=== PATIENT | male | born 1940 | race Caucasian/White ===

== ENCOUNTER 2018-09-06 14:59 | Inpatient (IN) ==
[2018-09-06] MEDS ORDERED: MUPIROCIN 2% OINT 22 GM TUBE TOP ONE (15:45)
[2018-09-06 16:30] LABS: Basophils # 0.1 10*3/uL (0.0-0.2); Basophils % 0.3 % (0.0-0.8); Eosinophils # 0.2 10*3/uL (0.0-0.87); Eosinophils % 0.9 % (0.00-10.9); Hematocrit 40.3 VOL% (42.0-52.0); Hemoglobin 12.8 GM/DL (14.0-18.0); Immature Granulocytes % 0.4 %; Immature Granulocytes Absolute 0.08 #; Lymphocytes # 13.4 10*3/uL (1.4-4.0); Lymphocytes % 63.8 % (21.2-54.2); Mean Corpuscular HGB Conc 31.8 GM/DL (32-36); Mean Corpuscular Volume 97.6 FL (87-102); Mean Platelet Volume 8.9 FL (9.6-12.0); Monocytes % 8.6 % (1.7-12.7); Platelet Count 161 T/CUMM (130-400); Red Blood Count 4.13 MC/CUMM (3.8-5.5); Red Cell Distribution Width 13.1 % (9.3-17.3)
[2018-09-06 16:52] LABS: Eosinophils 1 % (0-10); Lymphocytes 66 % (20-55); Platelet Estimate Normal; Segmented Neutrophils 29 % (50-85); Total Cells Counted 100
[2018-09-06 17:00] LABS: Albumin 3.8 G/DL (3.4-5.0); Bilirubin,Total 0.4 MG/DL (0.2-1.0); Calcium 8.4 MG/DL (8.5-10.1); Osmolality,Calculated 285.1 MOS/KG (273-304); Total Protein 6.9 G/DL (6.4-8.3)
[2018-09-06] MEDS ORDERED: ONDANSETRON 4 MG/2 ML VIAL IV PRN (18:24)
[2018-09-06] MEDS: SODIUM CHLORIDE 0.9% IV SCH (22:15)
[2018-09-06] MEDS: ACYCLOVIR IV SCH (22:15)
[2018-09-06] MEDS: methylPREDNISolone SOD SUC 40 MG/1 ML VIAL IV SCH (22:17)
[2018-09-06] MEDS: CARVEDILOL 6.25 MG TABLET PO SCH (22:18)
[2018-09-06] MEDS: MORPHINE 4 MG/1 ML VIAL IV PRN (22:19)
[2018-09-06] MEDS: CEFTAROLINE 600 MG in SODIUM CHLORIDE 0.9% 100 ML IV SCH (23:40)
[2018-09-07] MEDS: ACYCLOVIR IV SCH (04:31)
[2018-09-07] MEDS: SODIUM CHLORIDE 0.9% IV SCH (04:31)
[2018-09-07 07:26] LABS: Basophils % 0.1 % (0.0-0.8); Eosinophils % 0.1 % (0.00-10.9); Hematocrit 36.7 VOL% (42.0-52.0); Hemoglobin 11.7 GM/DL (14.0-18.0); Immature Granulocytes % 0.4 %; Immature Granulocytes Absolute 0.07 #; Lymphocytes # 10.9 10*3/uL (1.4-4.0); Mean Corpuscular HGB Conc 31.9 GM/DL (32-36); Mean Corpuscular Volume 96.3 FL (87-102); Mean Platelet Volume 9.7 FL (9.6-12.0); Monocytes % 1.8 % (1.7-12.7); Neutrophils % 31.6 % (38.7-73.9); Platelet Count 149 T/CUMM (130-400); Red Blood Count 3.81 MC/CUMM (3.8-5.5); White Blood Count 16.5 T/CUMM (4-12)
[2018-09-07 07:51] LABS: Atypical Lymphocytes Few; Hypochromasia 1+; Lymphocytes 54 % (20-55); Platelet Estimate Normal; Segmented Neutrophils 42 % (50-85); Smudge Cells Few; Total Cells Counted 100
[2018-09-07 07:55] LABS: Albumin 3.2 G/DL (3.4-5.0); Bilirubin,Total 0.4 MG/DL (0.2-1.0); Calcium 7.6 MG/DL (8.5-10.1); Osmolality,Calculated 281.4 MOS/KG (273-304); Risk Ratio 5.6; Thyroid Stimulating Hormone 0.433 uIU/ml (0.358-3.74); Total Protein 6.1 G/DL (6.4-8.3); VLDL CHOLESTEROL 21.4 MG/DL
[2018-09-07] MEDS: LISINOPRIL 2.5 MG TABLET PO SCH (08:39)
[2018-09-07] MEDS: methylPREDNISolone SOD SUC 40 MG/1 ML VIAL IV SCH ×2 (08:39→22:31)
[2018-09-07] MEDS: FUROSEMIDE 40 MG TABLET PO SCH (08:39)
[2018-09-07] MEDS: PANTOPRAZOLE 40 MG TABLET PO SCH (08:39)
[2018-09-07] MEDS: CARVEDILOL 6.25 MG TABLET PO SCH ×2 (08:39→22:30)
[2018-09-07] MEDS: SPIRONOLACTONE 25 MG TABLET PO SCH (08:39)
[2018-09-07] MEDS: CEFTAROLINE 600 MG in SODIUM CHLORIDE 0.9% 100 ML IV SCH (08:45)
[2018-09-07] MEDS: ACYCLOVIR INJ 750 MG in SODIUM CHLORIDE 0.9% 250 ML IV SCH ×2 (12:11→22:30)
[2018-09-07] MEDS ORDERED: cefTRIAXone 1,000 MG in SYRINGE 1 EACH IV SCH (15:00)
[2018-09-07] MEDS: MORPHINE 4 MG/1 ML VIAL IV PRN (19:46)
[2018-09-07] MEDS ORDERED: ENOXAPARIN 30 MG/0.3 ML SYRINGE SUBCUT SCH (20:00)
[2018-09-08] MEDS: MORPHINE 4 MG/1 ML VIAL IV PRN (01:20)
[2018-09-08] MEDS: ACYCLOVIR INJ 750 MG in SODIUM CHLORIDE 0.9% 250 ML IV SCH ×2 (05:35→11:31)
[2018-09-08 06:25] LABS: Basophils % 0.2 % (0.0-0.8); Hematocrit 37.5 VOL% (42.0-52.0); Hemoglobin 11.7 GM/DL (14.0-18.0); Immature Granulocytes % 0.5 %; Lymphocytes % 60.5 % (21.2-54.2); Mean Corpuscular HGB Conc 31.2 GM/DL (32-36); Mean Corpuscular Volume 97.4 FL (87-102); Mean Platelet Volume 9.2 FL (9.6-12.0); Monocytes % 2.3 % (1.7-12.7); Neutrophils % 36.5 % (38.7-73.9); Platelet Count 158 T/CUMM (130-400); Red Blood Count 3.85 MC/CUMM (3.8-5.5); Red Cell Distribution Width 12.9 % (9.3-17.3); White Blood Count 19.8 T/CUMM (4-12)
[2018-09-08 06:47] LABS: Lymphocytes 55 % (20-55); Platelet Estimate Adequate; Segmented Neutrophils 43 % (50-85); Total Cells Counted 100
[2018-09-08 06:48] LABS: Atypical Lymphocytes Few; Hypochromasia 1+
[2018-09-08 06:53] LABS: Albumin 3.3 G/DL (3.4-5.0); Bilirubin,Total 0.5 MG/DL (0.2-1.0); Calcium 7.9 MG/DL (8.5-10.1)
[2018-09-08] MEDS: CARVEDILOL 6.25 MG TABLET PO SCH (09:11)
[2018-09-08] MEDS: LISINOPRIL 2.5 MG TABLET PO SCH (09:11)
[2018-09-08] MEDS: SPIRONOLACTONE 25 MG TABLET PO SCH (09:11)
[2018-09-08] MEDS: PANTOPRAZOLE 40 MG TABLET PO SCH (09:12)
[2018-09-08] MEDS: FUROSEMIDE 40 MG TABLET PO SCH (09:12)
[2018-09-08] MEDS: methylPREDNISolone SOD SUC 40 MG/1 ML VIAL IV SCH (09:12)
[2018-09-08 11:38] VITALS: BP 109/59
== END 2018-09-08 14:45 | disposition home or self-care (01) | DRG 866 ==
LOC: N.ED 14:59 → N.EDINP 18:24 → N.5E 18:42
PROVIDERS: ADMIT Internal Medicine Nephrology; ATTEND Internal Medicine Nephrology

== ENCOUNTER 2020-06-09 13:19 | Inpatient (IN) ==
[2020-06-09 14:18] LABS: Basophils # 0.2 10*3/uL (0.0-0.2); Basophils % 0.2 % (0.0-0.8); Eosinophils # 0.3 10*3/uL (0.0-0.87); Eosinophils % 0.2 % (0.00-10.9); Immature Granulocytes % 0.2 %; Immature Granulocytes Absolute 0.28 #; Lymphocytes # 105.7 10*3/uL (1.4-4.0); Lymphocytes % 92.1 % (21.2-54.2); Mean Corpuscular HGB Conc 28.3 GM/DL (32-36); Mean Corpuscular Volume 109.8 FL (87-102); Mean Platelet Volume 10.6 FL (9.6-12.0); Monocytes % 4.5 % (1.7-12.7); Neutrophils % 2.8 % (38.7-73.9); Red Blood Count 1.32 MC/CUMM (3.8-5.5); Red Cell Distribution Width 14.6 % (9.3-17.3)
[2020-06-09 14:29] LABS: White Blood Count 114.8 T/CUMM (4-12)
[2020-06-09 14:38] LABS: Bilirubin,Total 0.5 MG/DL (0.2-1.0); Calcium 8.3 MG/DL (8.5-10.1); Osmolality,Calculated 294.8 MOS/KG (273-304); Potassium 4.1 MMOL/L (3.5-5.1); Total Protein 5.8 G/DL (6.4-8.2)
[2020-06-09 14:40] LABS: Hemoglobin 4.1 GM/DL (14.0-18.0)
[2020-06-09 14:41] LABS: Hematocrit 14.5 VOL% (42.0-52.0); Platelet Count 21 T/CUMM (130-400)
[2020-06-09] MEDS ORDERED: SODIUM CHLORIDE 0.9% 1,000 ML IV PRN (14:41)
[2020-06-09] MEDS ORDERED: DEXTROSE 50% 25 GM/50 ML VIAL IV PRN (15:33)
[2020-06-09] MEDS ORDERED: GLUCAGON 1 MG VIAL IM PRN (15:33)
[2020-06-09] MEDS ORDERED: ACETAMINOPHEN 325 MG TABLET PO PRN (15:34)
[2020-06-09] MEDS ORDERED: hydrALAZINE 20 MG/1 ML VIAL IV PRN (15:34)
[2020-06-09] MEDS ORDERED: ONDANSETRON 4 MG/2 ML VIAL IV PRN (15:34)
[2020-06-09 16:43] LABS: Lymphocytes 95 % (20-55); Segmented Neutrophils 4 % (50-85); Total Cells Counted 100
[2020-06-09 16:47] LABS: Hypochromasia 2+; Microcytosis 1+
[2020-06-09 16:48] LABS: Platelet Estimate Decreased; Polychromasia Few; Target Cells Few
[2020-06-09] MEDS ORDERED: VANCOMYCIN INJ 1,500 MG in SODIUM CHLORIDE 0.9% 500 ML IV SCH (18:30)
[2020-06-09] MEDS: PIPERACILLIN/TAZOBACTAM 3,375 MG in SODIUM CHLORIDE 0.9% 100 ML IV SCH (18:35)
[2020-06-09] MEDS: SODIUM CHLORIDE 0.9% 1,000 ML IV SCH (18:35)
[2020-06-10] MEDS: PIPERACILLIN/TAZOBACTAM 3,375 MG in SODIUM CHLORIDE 0.9% 100 ML IV SCH ×2 (01:19→08:44)
[2020-06-10 05:42] LABS: Basophils # 0.1 10*3/uL (0.0-0.2); Basophils % 0.1 % (0.0-0.8); Eosinophils # 0.2 10*3/uL (0.0-0.87); Eosinophils % 0.3 % (0.00-10.9); Hematocrit 20.3 VOL% (42.0-52.0); Immature Granulocytes % 0.2 %; Immature Granulocytes Absolute 0.18 #; Lymphocytes # 87.4 10*3/uL (1.4-4.0); Lymphocytes % 91.9 % (21.2-54.2); Mean Corpuscular HGB Conc 30.5 GM/DL (32-36); Mean Platelet Volume 11.3 FL (9.6-12.0); Monocytes % 4.3 % (1.7-12.7); Neutrophils % 3.2 % (38.7-73.9); Red Blood Count 2.01 MC/CUMM (3.8-5.5); Red Cell Distribution Width 17.3 % (9.3-17.3)
[2020-06-10 05:57] LABS: Calcium 8.4 MG/DL (8.5-10.1); Osmolality,Calculated 296.6 MOS/KG (273-304); Potassium 3.8 MMOL/L (3.5-5.1)
[2020-06-10 05:58] LABS: Hemoglobin 6.2 GM/DL (14.0-18.0); White Blood Count 95.1 T/CUMM (4-12)
[2020-06-10 05:59] LABS: Platelet Count 16 T/CUMM (130-400)
[2020-06-10 06:11] LABS: Eosinophils 1 % (0-10); Lymphocytes 87 % (20-55); Segmented Neutrophils 9 % (50-85); Total Cells Counted 100
[2020-06-10 06:12] LABS: Atypical Lymphocytes Few; Platelet Estimate Decreased
[2020-06-10] MEDS ORDERED: SODIUM CHLORIDE 0.9% 1,000 ML IV PRN (08:32)
[2020-06-10] MEDS: PANTOPRAZOLE 40 MG TABLET PO SCH (08:48)
[2020-06-10] MEDS ORDERED: ACETAMINOPHEN 325 MG TABLET PO ONE (10:30)
[2020-06-10] MEDS ORDERED: DEXAMETHASONE 10 MG/1 ML VIAL IV ONE (10:30)
[2020-06-10] MEDS ORDERED: diphenhydrAMINE CAP 50 MG CAPSULE PO ONE (10:30)
[2020-06-10] MEDS ORDERED: FAMOTIDINE 20 MG TABLET PO ONE (10:30)
[2020-06-10] MEDS ORDERED: RITUXIMAB-ABBS 500 MG, RITUXIMAB-ABBS 300 MG in SODIUM CHLORIDE 0.9% 720 ML IV ONE ×2 (11:00→12:30)
[2020-06-10] MEDS: allopurinoL 300 MG TABLET PO SCH (12:34)
[2020-06-10] MEDS ORDERED: FUROSEMIDE 20 MG/2 ML VIAL IV ONE (14:29)
[2020-06-11] MEDS: PIPERACILLIN/TAZOBACTAM 3,375 MG in SODIUM CHLORIDE 0.9% 100 ML IV SCH ×3 (01:08→19:14)
[2020-06-11 06:59] LABS: Eosinophils # 0.1 10*3/uL (0.0-0.87); Eosinophils % 0.1 % (0.00-10.9); Hematocrit 23.9 VOL% (42.0-52.0); Hemoglobin 7.1 GM/DL (14.0-18.0); Immature Granulocytes % 0.3 %; Immature Granulocytes Absolute 0.27 #; Lymphocytes # 88.7 10*3/uL (1.4-4.0); Lymphocytes % 91.1 % (21.2-54.2); Mean Corpuscular HGB Conc 29.7 GM/DL (32-36); Neutrophils % 5.5 % (38.7-73.9); Red Blood Count 2.32 MC/CUMM (3.8-5.5); Red Cell Distribution Width 18.1 % (9.3-17.3)
[2020-06-11 07:12] LABS: Calcium 7.9 MG/DL (8.5-10.1); Osmolality,Calculated 293.7 MOS/KG (273-304); Potassium 4.3 MMOL/L (3.5-5.1); Uric Acid 5.1 MG/DL (3.5-7.2)
[2020-06-11 07:16] LABS: Platelet Count 16 T/CUMM (130-400); White Blood Count 97.4 T/CUMM (4-12)
[2020-06-11 07:34] LABS: Atypical Lymphocytes Few; Hypochromasia 1+; Lymphocytes 92 % (20-55); Microcytosis 1+; Platelet Estimate Decreased; Segmented Neutrophils 8 % (50-85); Total Cells Counted 100
[2020-06-11] MEDS ORDERED: SODIUM CHLORIDE 0.9% 1,000 ML IV PRN (08:37)
[2020-06-11] MEDS: PANTOPRAZOLE 40 MG TABLET PO SCH (09:29)
[2020-06-11] MEDS: allopurinoL 300 MG TABLET PO SCH (09:29)
[2020-06-11] MEDS ORDERED: PROMETHAZINE INJ 12.5 MG in SODIUM CHLORIDE 0.9% 50 ML IV PRN (14:57)
[2020-06-11] MEDS: SODIUM CHLORIDE 0.9% 1,000 ML IV SCH (20:06)
[2020-06-12] MEDS: SODIUM CHLORIDE 0.9% 1,000 ML IV SCH ×3 (00:20→06:26)
[2020-06-12] MEDS: PIPERACILLIN/TAZOBACTAM 3,375 MG in SODIUM CHLORIDE 0.9% 100 ML IV SCH (01:27)
[2020-06-12 07:16] LABS: Eosinophils # 0.2 10*3/uL (0.0-0.87); Eosinophils % 0.2 % (0.00-10.9); Hematocrit 30.8 VOL% (42.0-52.0); Immature Granulocytes % 0.3 %; Immature Granulocytes Absolute 0.23 #; Lymphocytes # 79.1 10*3/uL (1.4-4.0); Lymphocytes % 91.5 % (21.2-54.2); Mean Corpuscular HGB Conc 30.8 GM/DL (32-36); Mean Corpuscular Volume 100.3 FL (87-102); Mean Platelet Volume 11.3 FL (9.6-12.0); Red Blood Count 3.07 MC/CUMM (3.8-5.5); Red Cell Distribution Width 18.2 % (9.3-17.3)
[2020-06-12 07:28] LABS: Calcium 8.2 MG/DL (8.5-10.1); Osmolality,Calculated 293.7 MOS/KG (273-304); Potassium 4.4 MMOL/L (3.5-5.1); Uric Acid 4.2 MG/DL (3.5-7.2)
[2020-06-12 07:33] LABS: White Blood Count 86.5 T/CUMM (4-12)
[2020-06-12 07:34] LABS: Hemoglobin 9.5 GM/DL (14.0-18.0); Platelet Count 11 T/CUMM (130-400)
[2020-06-12 07:51] LABS: Atypical Lymphocytes Few; Eosinophils 1 % (0-10); Hypochromasia 1+; Lymphocytes 92 % (20-55); Microcytosis 1+; Platelet Estimate Decreased; Segmented Neutrophils 7 % (50-85); Smudge Cells Few; Total Cells Counted 100
[2020-06-12] MEDS ORDERED: SODIUM CHLORIDE 0.9% 1,000 ML IV PRN (08:07)
[2020-06-12] MEDS ORDERED: FUROSEMIDE 20 MG/2 ML VIAL IV ONE (08:39)
[2020-06-12] MEDS: PANTOPRAZOLE 40 MG TABLET PO SCH (10:18)
[2020-06-12] MEDS: allopurinoL 300 MG TABLET PO SCH (10:18)
[2020-06-13 06:08] LABS: Basophils % 0.1 % (0.0-0.8); Eosinophils # 0.2 10*3/uL (0.0-0.87); Eosinophils % 0.3 % (0.00-10.9); Hematocrit 27.3 VOL% (42.0-52.0); Hemoglobin 8.3 GM/DL (14.0-18.0); Immature Granulocytes % 0.4 %; Immature Granulocytes Absolute 0.26 #; Lymphocytes # 59.5 10*3/uL (1.4-4.0); Lymphocytes % 89.4 % (21.2-54.2); Mean Corpuscular HGB Conc 30.4 GM/DL (32-36); Mean Corpuscular Volume 100.7 FL (87-102); Mean Platelet Volume 10.3 FL (9.6-12.0); Monocytes % 2.7 % (1.7-12.7); Neutrophils % 7.1 % (38.7-73.9); Platelet Count 44 T/CUMM (130-400); Red Blood Count 2.71 MC/CUMM (3.8-5.5); Red Cell Distribution Width 16.7 % (9.3-17.3)
[2020-06-13 06:18] LABS: White Blood Count 66.5 T/CUMM (4-12)
[2020-06-13] MEDS: SODIUM CHLORIDE 0.9% 1,000 ML IV SCH ×2 (06:35→16:36)
[2020-06-13 06:37] LABS: Atypical Lymphocytes Few; Hypochromasia 1+; Lymphocytes 90 % (20-55); Microcytosis 1+; Platelet Estimate Decreased; Segmented Neutrophils 9 % (50-85); Smudge Cells Few; Total Cells Counted 100
[2020-06-13 06:43] LABS: Calcium 8.2 MG/DL (8.5-10.1); Potassium 4.1 MMOL/L (3.5-5.1); Uric Acid 3.3 MG/DL (3.5-7.2)
[2020-06-13] MEDS: allopurinoL 300 MG TABLET PO SCH (09:32)
[2020-06-13] MEDS: PANTOPRAZOLE 40 MG TABLET PO SCH (09:32)
[2020-06-14 05:25] LABS: Basophils # 0.1 10*3/uL (0.0-0.2); Basophils % 0.1 % (0.0-0.8); Eosinophils # 0.3 10*3/uL (0.0-0.87); Eosinophils % 0.4 % (0.00-10.9); Hematocrit 26.9 VOL% (42.0-52.0); Hemoglobin 8.4 GM/DL (14.0-18.0); Immature Granulocytes % 0.4 %; Immature Granulocytes Absolute 0.23 #; Lymphocytes # 48.6 10*3/uL (1.4-4.0); Lymphocytes % 86.7 % (21.2-54.2); Mean Corpuscular HGB Conc 31.2 GM/DL (32-36); Mean Corpuscular Volume 98.2 FL (87-102); Mean Platelet Volume 10.6 FL (9.6-12.0); Monocytes % 3.7 % (1.7-12.7); Neutrophils % 8.7 % (38.7-73.9); Red Blood Count 2.74 MC/CUMM (3.8-5.5)
[2020-06-14 05:37] LABS: White Blood Count 56.1 T/CUMM (4-12)
[2020-06-14 05:38] LABS: Platelet Count 33 T/CUMM (130-400)
[2020-06-14 05:47] LABS: Calcium 8.4 MG/DL (8.5-10.1); Osmolality,Calculated 289.8 MOS/KG (273-304); Potassium 4.3 MMOL/L (3.5-5.1)
[2020-06-14 06:46] LABS: Atypical Lymphocytes Few; Band Neutrophils 4 % (0-10); Lymphocytes 83 % (20-55); Platelet Estimate Decreased; Segmented Neutrophils 13 % (50-85); Smudge Cells 1+; Total Cells Counted 100
[2020-06-14 06:47] LABS: Anisocytosis 1+
[2020-06-14] MEDS: PANTOPRAZOLE 40 MG TABLET PO SCH (09:24)
[2020-06-14] MEDS: allopurinoL 300 MG TABLET PO SCH (09:25)
[2020-06-15 06:58] LABS: Basophils % 0.1 % (0.0-0.8); Eosinophils # 0.4 10*3/uL (0.0-0.87); Eosinophils % 0.5 % (0.00-10.9); Hematocrit 30.5 VOL% (42.0-52.0); Hemoglobin 9.2 GM/DL (14.0-18.0); Immature Granulocytes % 0.4 %; Immature Granulocytes Absolute 0.33 #; Lymphocytes # 66.1 10*3/uL (1.4-4.0); Lymphocytes % 88.4 % (21.2-54.2); Mean Corpuscular HGB Conc 30.2 GM/DL (32-36); Mean Platelet Volume 10.2 FL (9.6-12.0); Monocytes % 3.1 % (1.7-12.7); Neutrophils % 7.5 % (38.7-73.9); Red Blood Count 2.99 MC/CUMM (3.8-5.5); Red Cell Distribution Width 15.7 % (9.3-17.3)
[2020-06-15 06:59] LABS: Platelet Count 36 T/CUMM (130-400); White Blood Count 74.8 T/CUMM (4-12)
[2020-06-15 07:06] LABS: Calcium 8.4 MG/DL (8.5-10.1); Potassium 4.5 MMOL/L (3.5-5.1)
[2020-06-15 07:11] LABS: Osmolality,Calculated 287.8 MOS/KG (273-304)
[2020-06-15 08:18] LABS: Eosinophils 2 % (0-10); Lymphocytes 83 % (20-55); Platelet Estimate Decreased; Segmented Neutrophils 14 % (50-85); Total Cells Counted 100
[2020-06-15 08:19] LABS: Anisocytosis 1+; Atypical Lymphocytes Few; Macrocytosis Slight; Smudge Cells Few
[2020-06-15] MEDS: allopurinoL 300 MG TABLET PO SCH (09:30)
[2020-06-15] MEDS: PANTOPRAZOLE 40 MG TABLET PO SCH (09:30)
[2020-06-16 06:06] LABS: Basophils # 0.1 10*3/uL (0.0-0.2); Basophils % 0.1 % (0.0-0.8); Eosinophils # 0.3 10*3/uL (0.0-0.87); Eosinophils % 0.4 % (0.00-10.9); Hemoglobin 8.1 GM/DL (14.0-18.0); Immature Granulocytes % 0.5 %; Lymphocytes # 55.2 10*3/uL (1.4-4.0); Lymphocytes % 88.9 % (21.2-54.2); Mean Corpuscular Volume 102.7 FL (87-102); Mean Platelet Volume 9.9 FL (9.6-12.0); Monocytes % 2.5 % (1.7-12.7); Neutrophils % 7.6 % (38.7-73.9); Red Blood Count 2.63 MC/CUMM (3.8-5.5); Red Cell Distribution Width 15.3 % (9.3-17.3)
[2020-06-16 06:11] LABS: Platelet Count 27 T/CUMM (130-400)
[2020-06-16 06:34] LABS: Albumin 3.1 G/DL (3.4-5.0); Atypical Lymphocytes Few; Bilirubin,Total 0.5 MG/DL (0.2-1.0); Calcium 8.2 MG/DL (8.5-10.1); Eosinophils 1 % (0-10); Hypochromasia 1+; Lymphocytes 88 % (20-55); Microcytosis 1+; Platelet Estimate Decreased; Potassium 4.6 MMOL/L (3.5-5.1); Segmented Neutrophils 10 % (50-85); Total Cells Counted 100; Total Protein 5.4 G/DL (6.4-8.2)
[2020-06-16] MEDS: SODIUM CHLORIDE 0.9% 1,000 ML IV SCH ×2 (08:16→13:44)
[2020-06-16] MEDS: PANTOPRAZOLE 40 MG TABLET PO SCH (08:57)
[2020-06-16] MEDS: allopurinoL 300 MG TABLET PO SCH (08:57)
[2020-06-16] MEDS ORDERED: diphenhydrAMINE CAP 50 MG CAPSULE PO ONE (09:00)
[2020-06-16] MEDS ORDERED: methylPREDNISolone SOD SUC 125 MG/2 ML VIAL IV ONE (09:00)
[2020-06-16] MEDS ORDERED: ACETAMINOPHEN 325 MG TABLET PO ONE (09:00)
[2020-06-16] MEDS ORDERED: FAMOTIDINE 20 MG TABLET PO ONE (09:00)
[2020-06-16] MEDS ORDERED: SODIUM CHLORIDE 0.9% IV ONE (10:00)
[2020-06-16] MEDS ORDERED: RITUXIMAB ABBS IV ONE (10:00)
[2020-06-16] MEDS ORDERED: TUBERCULIN SKIN TEST 0.1 ML SYRINGE INTRADERM ONE (14:49)
[2020-06-17 05:48] LABS: Eosinophils # 0.2 10*3/uL (0.0-0.87); Eosinophils % 0.2 % (0.00-10.9); Hematocrit 24.4 VOL% (42.0-52.0); Hemoglobin 7.6 GM/DL (14.0-18.0); Immature Granulocytes % 0.5 %; Immature Granulocytes Absolute 0.31 #; Lymphocytes # 56.3 10*3/uL (1.4-4.0); Lymphocytes % 89.4 % (21.2-54.2); Mean Corpuscular HGB Conc 31.1 GM/DL (32-36); Mean Corpuscular Volume 98.8 FL (87-102); Mean Platelet Volume 12.2 FL (9.6-12.0); Monocytes % 2.7 % (1.7-12.7); Neutrophils % 7.2 % (38.7-73.9); Red Blood Count 2.47 MC/CUMM (3.8-5.5); Red Cell Distribution Width 14.7 % (9.3-17.3)
[2020-06-17 05:50] LABS: Platelet Count 25 T/CUMM (130-400); White Blood Count 63.1 T/CUMM (4-12)
[2020-06-17 06:03] LABS: Calcium 8.2 MG/DL (8.5-10.1); Osmolality,Calculated 279.5 MOS/KG (273-304); Potassium 4.5 MMOL/L (3.5-5.1)
[2020-06-17 06:07] LABS: Albumin 3.2 G/DL (3.4-5.0); Bilirubin,Total 0.7 MG/DL (0.2-1.0); Calcium 8.2 MG/DL (8.5-10.1); Osmolality,Calculated 281.4 MOS/KG (273-304); Potassium 4.5 MMOL/L (3.5-5.1); Total Protein 5.2 G/DL (6.4-8.2)
[2020-06-17 06:12] LABS: Atypical Lymphocytes Few; Hypochromasia 1+; Lymphocytes 90 % (20-55); Microcytosis 1+; Platelet Estimate Decreased; Segmented Neutrophils 10 % (50-85); Smudge Cells Few; Total Cells Counted 100
[2020-06-17] MEDS ORDERED: SODIUM CHLORIDE 0.9% 1,000 ML IV PRN ×2 (08:39→08:40)
[2020-06-17] MEDS: allopurinoL 300 MG TABLET PO SCH (08:48)
[2020-06-17] MEDS: PANTOPRAZOLE 40 MG TABLET PO SCH (08:48)
[2020-06-17] MEDS: SODIUM CHLORIDE 0.9% 1,000 ML IV SCH (13:51)
[2020-06-18 06:39] LABS: Albumin 2.9 G/DL (3.4-5.0); Calcium 8.2 MG/DL (8.5-10.1); Osmolality,Calculated 275.7 MOS/KG (273-304); Potassium 4.3 MMOL/L (3.5-5.1); Total Protein 5.1 G/DL (6.4-8.2)
[2020-06-18 08:53] LABS: Basophils % 0.1 % (0.0-0.8); Eosinophils # 0.3 10*3/uL (0.0-0.87); Eosinophils % 0.5 % (0.00-10.9); Hematocrit 29.1 VOL% (42.0-52.0); Immature Granulocytes % 0.4 %; Immature Granulocytes Absolute 0.23 #; Lymphocytes # 49.4 10*3/uL (1.4-4.0); Lymphocytes % 91.2 % (21.2-54.2); Mean Corpuscular HGB Conc 30.9 GM/DL (32-36); Mean Platelet Volume 11.1 FL (9.6-12.0); Monocytes % 0.9 % (1.7-12.7); Neutrophils % 6.9 % (38.7-73.9)
[2020-06-18 08:57] LABS: White Blood Count 54.1 T/CUMM (4-12)
[2020-06-18 08:58] LABS: Platelet Count 25 T/CUMM (130-400)
[2020-06-18 09:02] LABS: Atypical Lymphocytes Few; Eosinophils 2 % (0-10); Hypochromasia 1+; Lymphocytes 96 % (20-55); Microcytosis 1+; Platelet Estimate Decreased; Segmented Neutrophils 2 % (50-85); Smudge Cells Few; Total Cells Counted 100
[2020-06-18] MEDS: allopurinoL 300 MG TABLET PO SCH (09:48)
[2020-06-18] MEDS: PANTOPRAZOLE 40 MG TABLET PO SCH (09:48)
[2020-06-18 11:59] VITALS: BP 137/59
== END 2020-06-18 14:29 | disposition swing bed (61) | DRG 840 ==
LOC: N.ED 13:19 → N.EDINP 15:33 → SUATTDRO 15:33 → N.4E 16:43
PROVIDERS: ADMIT Emergency Medicine; ATTEND Internal Medicine

== ENCOUNTER 2020-06-23 08:35 | Inpatient (IN) ==
[2020-06-23] MEDS ORDERED: ACETAMINOPHEN 650 MG SUPP RECTAL STA (08:46)
[2020-06-23] MEDS ORDERED: SODIUM CHLORIDE 0.9% 2,550 ML IV ONE (08:59)
[2020-06-23 09:02] LABS: Basophils % 0.1 % (0.0-0.8); Eosinophils # 0.1 10*3/uL (0.0-0.87); Eosinophils % 0.3 % (0.00-10.9); Hematocrit 33.1 VOL% (42.0-52.0); Immature Granulocytes % 0.4 %; Immature Granulocytes Absolute 0.09 #; Lymphocytes # 15.3 10*3/uL (1.4-4.0); Lymphocytes % 76.2 % (21.2-54.2); Mean Corpuscular HGB Conc 31.4 GM/DL (32-36); Mean Corpuscular Volume 94.8 FL (87-102); Mean Platelet Volume 11.3 FL (9.6-12.0); Monocytes % 1.9 % (1.7-12.7); Neutrophils % 21.1 % (38.7-73.9); Red Cell Distribution Width 15.4 % (9.3-17.3); White Blood Count 20.1 T/CUMM (4-12)
[2020-06-23 09:03] LABS: Hemoglobin 10.4 GM/DL (14.0-18.0); Platelet Count 49 T/CUMM (130-400); Red Blood Count 3.49 MC/CUMM (3.8-5.5)
[2020-06-23 09:10] LABS: PT Patient Result 11.1 SECS (10.5-12.0)
[2020-06-23 09:16] LABS: Bilirubin,Total 0.7 MG/DL (0.2-1.0); Calcium 8.4 MG/DL (8.5-10.1); Potassium 4.6 MMOL/L (3.5-5.1); Total Protein 5.8 G/DL (6.4-8.2)
[2020-06-23 09:19] LABS: Band Neutrophils 2 % (0-10); Eosinophils 1 % (0-10); Hypochromasia 1+; Lymphocytes 76 % (20-55); Microcytosis 1+; Platelet Estimate Decreased; Segmented Neutrophils 19 % (50-85); Smudge Cells Few; Total Cells Counted 100
[2020-06-23 09:20] LABS: Atypical Lymphocytes Few
[2020-06-23] MEDS ORDERED: PIPERACILLIN/TAZOBACTAM 3,375 MG in SODIUM CHLORIDE 0.9% 100 ML IV STA (09:40)
[2020-06-23 09:41] LABS: Bacteria,Urine Occasional /HPF (Few); Bilirubin,Urine Negative (Negative); Blood, Urine Small mg/dL (Negative); Glucose,Urine (UA) Negative (Negative); Ketones,Urine Negative (Negative); Mucus,Urine Occasional /LPF (Occasional); Nitrite,Urine Negative (Negative); Protein,Urine Negative; RBC,Urine 16 /HPF (0-4); Urine Appearance Slightly Hazy (Clear); Urine Color Yellow (Yellow); Urine Specific Gravity 1.014 (1.001-1.035)
[2020-06-23] MEDS ORDERED: ACETAMINOPHEN 325 MG TABLET PO PRN (10:42)
[2020-06-23] MEDS ORDERED: ONDANSETRON 4 MG/2 ML VIAL IV PRN (10:42)
[2020-06-23] MEDS ORDERED: DEXTROSE 50% 25 GM/50 ML VIAL IV PRN (10:42)
[2020-06-23] MEDS ORDERED: GLUCAGON 1 MG VIAL IM PRN (10:42)
[2020-06-23] MEDS ORDERED: ALUMINUM/MAGNES/SIMETH MAX STR 30 ML UDCUP PO PRN (10:42)
[2020-06-23] MEDS ORDERED: SKIN HEALING OINT (AQUAPHOR) 50 GM TUBE TOP PRN (11:44)
[2020-06-23] MEDS: SODIUM CHLORIDE 0.9% 1,000 ML IV SCH (12:55)
[2020-06-23] MEDS: LEVOFLOXACIN INJ 750 MG/150 ML PREMIX IV SCH (12:57)
[2020-06-23] MEDS ORDERED: SODIUM CHLORIDE 0.9% 500 ML IV ONE (13:10)
[2020-06-23 16:16] LABS: Free T4 (Free Thyroxine) 1.07 NG/DL (0.76-1.46)
[2020-06-23] MEDS: LACTULOSE 20 GM/30 ML UDCUP PO SCH ×2 (20:07→22:33)
[2020-06-24] MEDS: SODIUM CHLORIDE 0.9% 1,000 ML IV SCH (05:39)
[2020-06-24 06:18] LABS: Calcium 7.7 MG/DL (8.5-10.1); Osmolality,Calculated 281.4 MOS/KG (273-304); Potassium 4.2 MMOL/L (3.5-5.1)
[2020-06-24 06:23] LABS: Basophils % 0.1 % (0.0-0.8); Eosinophils % 0.2 % (0.00-10.9); Hematocrit 22.5 VOL% (42.0-52.0); Immature Granulocytes % 1.2 %; Immature Granulocytes Absolute 0.19 #; Lymphocytes % 68.6 % (21.2-54.2); Mean Corpuscular HGB Conc 31.6 GM/DL (32-36); Mean Corpuscular Volume 95.3 FL (87-102); Mean Platelet Volume 11.6 FL (9.6-12.0); Monocytes % 3.6 % (1.7-12.7); Neutrophils % 26.3 % (38.7-73.9); Red Blood Count 2.36 MC/CUMM (3.8-5.5); Red Cell Distribution Width 15.5 % (9.3-17.3)
[2020-06-24 06:24] LABS: Hemoglobin 7.1 GM/DL (14.0-18.0); Platelet Count 51 T/CUMM (130-400)
[2020-06-24 06:27] LABS: Eosinophils 1 % (0-10); Lymphocytes 78 % (20-55); Segmented Neutrophils 20 % (50-85); Total Cells Counted 100
[2020-06-24 06:28] LABS: Hypochromasia 1+; Platelet Estimate Decreased
[2020-06-24 08:54] LABS: % Iron Saturation 41.7 % (18-50); Ferritin 1065.5 ng/ml (26-388)
[2020-06-24 09:24] LABS: Hemoglobin 7.3 GM/DL (14.0-18.0)
[2020-06-24] MEDS ORDERED: SODIUM CHLORIDE 0.9% 1,000 ML IV PRN (09:39)
[2020-06-24] MEDS: LACTULOSE 20 GM/30 ML UDCUP PO SCH ×2 (09:58→21:27)
[2020-06-24] MEDS: CYANOCOBALAMIN 500 MCG TABLET PO SCH (09:58)
[2020-06-24] MEDS: PANTOPRAZOLE 40 MG VIAL IV SCH (09:59)
[2020-06-24] MEDS: LEVOFLOXACIN INJ 750 MG/150 ML PREMIX IV SCH (10:01)
[2020-06-25 05:24] LABS: Basophils % 0.2 % (0.0-0.8); Eosinophils # 0.1 10*3/uL (0.0-0.87); Eosinophils % 0.8 % (0.00-10.9); Hematocrit 27.3 VOL% (42.0-52.0); Hemoglobin 8.7 GM/DL (14.0-18.0); Immature Granulocytes % 1.8 %; Immature Granulocytes Absolute 0.27 #; Lymphocytes # 9.9 10*3/uL (1.4-4.0); Lymphocytes % 65.1 % (21.2-54.2); Mean Corpuscular HGB Conc 31.9 GM/DL (32-36); Mean Corpuscular Volume 94.1 FL (87-102); Mean Platelet Volume 11.5 FL (9.6-12.0); Monocytes % 2.5 % (1.7-12.7); Neutrophils % 29.6 % (38.7-73.9); Platelet Count 67 T/CUMM (130-400); Red Cell Distribution Width 16.2 % (9.3-17.3); White Blood Count 15.1 T/CUMM (4-12)
[2020-06-25 05:35] LABS: Calcium 8.2 MG/DL (8.5-10.1); Osmolality,Calculated 283.3 MOS/KG (273-304); Potassium 4.3 MMOL/L (3.5-5.1)
[2020-06-25 05:50] LABS: Atypical Lymphocytes Few; Eosinophils 1 % (0-10); Lymphocytes 58 % (20-55); Platelet Estimate Decreased; Segmented Neutrophils 39 % (50-85); Smudge Cells Few; Total Cells Counted 100
[2020-06-25 05:51] LABS: Hypochromasia 1+; Microcytosis 1+
[2020-06-25] MEDS: CYANOCOBALAMIN 500 MCG TABLET PO SCH (09:28)
[2020-06-25] MEDS: PANTOPRAZOLE 40 MG VIAL IV SCH (09:29)
[2020-06-25] MEDS: LACTULOSE 20 GM/30 ML UDCUP PO SCH ×2 (09:29→20:17)
[2020-06-25] MEDS: ALBUTEROL/IPRATROPIUM 3 ML NEB RESP TX SCH ×4 (10:40→23:00)
[2020-06-25] MEDS: LEVOFLOXACIN INJ 750 MG/150 ML PREMIX IV SCH (11:38)
[2020-06-26] MEDS: ALBUTEROL/IPRATROPIUM 3 ML NEB RESP TX SCH ×6 (05:00→23:19)
[2020-06-26 05:27] LABS: Basophils # 0.1 10*3/uL (0.0-0.2); Basophils % 0.3 % (0.0-0.8); Eosinophils # 0.2 10*3/uL (0.0-0.87); Hematocrit 29.6 VOL% (42.0-52.0); Hemoglobin 9.2 GM/DL (14.0-18.0); Immature Granulocytes % 1.2 %; Lymphocytes # 10.6 10*3/uL (1.4-4.0); Lymphocytes % 65.3 % (21.2-54.2); Mean Corpuscular HGB Conc 31.1 GM/DL (32-36); Mean Corpuscular Volume 94.6 FL (87-102); Mean Platelet Volume 11.2 FL (9.6-12.0); Monocytes % 3.7 % (1.7-12.7); Neutrophils % 28.5 % (38.7-73.9); Platelet Count 97 T/CUMM (130-400); Red Blood Count 3.13 MC/CUMM (3.8-5.5); Red Cell Distribution Width 15.7 % (9.3-17.3); White Blood Count 16.3 T/CUMM (4-12)
[2020-06-26 05:45] LABS: Calcium 8.2 MG/DL (8.5-10.1); Osmolality,Calculated 282.3 MOS/KG (273-304); Potassium 4.4 MMOL/L (3.5-5.1)
[2020-06-26 05:53] LABS: Atypical Lymphocytes Few; Eosinophils 1 % (0-10); Hypochromasia 1+; Lymphocytes 54 % (20-55); Microcytosis 1+; Platelet Estimate Decreased; Segmented Neutrophils 43 % (50-85); Smudge Cells Few; Total Cells Counted 100
[2020-06-26] MEDS: PANTOPRAZOLE 40 MG VIAL IV SCH (09:40)
[2020-06-26] MEDS: LACTULOSE 20 GM/30 ML UDCUP PO SCH ×2 (09:41→20:21)
[2020-06-26] MEDS: CYANOCOBALAMIN 500 MCG TABLET PO SCH (09:41)
[2020-06-26] MEDS: LEVOFLOXACIN INJ 750 MG/150 ML PREMIX IV SCH (11:09)
[2020-06-26] MEDS: DOCUSATE SODIUM 100 MG CAPSULE PO PRN (20:21)
[2020-06-27] MEDS: ALBUTEROL/IPRATROPIUM 3 ML NEB RESP TX SCH ×5 (02:37→19:53)
[2020-06-27 05:31] LABS: Basophils # 0.1 10*3/uL (0.0-0.2); Basophils % 0.3 % (0.0-0.8); Eosinophils # 0.2 10*3/uL (0.0-0.87); Hematocrit 30.3 VOL% (42.0-52.0); Hemoglobin 9.7 GM/DL (14.0-18.0); Immature Granulocytes % 1.5 %; Immature Granulocytes Absolute 0.26 #; Lymphocytes % 67.7 % (21.2-54.2); Mean Corpuscular Volume 92.9 FL (87-102); Mean Platelet Volume 10.8 FL (9.6-12.0); Monocytes % 3.3 % (1.7-12.7); Neutrophils % 26.2 % (38.7-73.9); Platelet Count 127 T/CUMM (130-400); Red Blood Count 3.26 MC/CUMM (3.8-5.5); Red Cell Distribution Width 15.2 % (9.3-17.3); White Blood Count 17.7 T/CUMM (4-12)
[2020-06-27 05:51] LABS: Calcium 8.3 MG/DL (8.5-10.1); Potassium 4.4 MMOL/L (3.5-5.1)
[2020-06-27 08:03] LABS: Eosinophils 2 % (0-10); Lymphocytes 55 % (20-55); Segmented Neutrophils 40 % (50-85); Total Cells Counted 100
[2020-06-27 08:04] LABS: Platelet Estimate Adequate
[2020-06-27] MEDS: CYANOCOBALAMIN 500 MCG TABLET PO SCH (09:34)
[2020-06-27] MEDS: PANTOPRAZOLE 40 MG VIAL IV SCH (09:34)
[2020-06-27] MEDS: DOCUSATE SODIUM 100 MG CAPSULE PO PRN (09:35)
[2020-06-27] MEDS: LACTULOSE 20 GM/30 ML UDCUP PO SCH ×2 (09:35→21:22)
[2020-06-27] MEDS: LEVOFLOXACIN INJ 750 MG/150 ML PREMIX IV SCH (14:28)
[2020-06-28] MEDS: ALBUTEROL/IPRATROPIUM 3 ML NEB RESP TX SCH ×7 (00:42→23:52)
[2020-06-28 04:52] LABS: Basophils # 0.1 10*3/uL (0.0-0.2); Basophils % 0.3 % (0.0-0.8); Eosinophils # 0.2 10*3/uL (0.0-0.87); Hemoglobin 9.9 GM/DL (14.0-18.0); Immature Granulocytes % 1.9 %; Immature Granulocytes Absolute 0.41 #; Lymphocytes # 15.4 10*3/uL (1.4-4.0); Lymphocytes % 70.3 % (21.2-54.2); Mean Corpuscular HGB Conc 31.9 GM/DL (32-36); Mean Corpuscular Volume 93.4 FL (87-102); Mean Platelet Volume 10.6 FL (9.6-12.0); Monocytes % 3.6 % (1.7-12.7); Neutrophils % 22.9 % (38.7-73.9); Platelet Count 158 T/CUMM (130-400); Red Blood Count 3.32 MC/CUMM (3.8-5.5); Red Cell Distribution Width 15.1 % (9.3-17.3); White Blood Count 21.9 T/CUMM (4-12)
[2020-06-28 05:11] LABS: Calcium 8.5 MG/DL (8.5-10.1); Osmolality,Calculated 277.7 MOS/KG (273-304); Potassium 4.3 MMOL/L (3.5-5.1)
[2020-06-28 05:36] LABS: Atypical Lymphocytes Few; Band Neutrophils 1 % (0-10); Eosinophils 2 % (0-10); Lymphocytes 77 % (20-55); Metamyelocytes 1 %; Segmented Neutrophils 17 % (50-85); Smudge Cells Few; Total Cells Counted 100
[2020-06-28 05:37] LABS: Hypochromasia 1+; Microcytosis 1+; Platelet Estimate Adequate
[2020-06-28] MEDS: LACTULOSE 20 GM/30 ML UDCUP PO SCH ×2 (09:13→20:59)
[2020-06-28] MEDS: CYANOCOBALAMIN 500 MCG TABLET PO SCH (09:14)
[2020-06-28] MEDS: PANTOPRAZOLE 40 MG VIAL IV SCH (09:14)
[2020-06-28] MEDS: LEVOFLOXACIN INJ 750 MG/150 ML PREMIX IV SCH (11:11)
[2020-06-29] MEDS: ALBUTEROL/IPRATROPIUM 3 ML NEB RESP TX SCH ×6 (03:38→22:54)
[2020-06-29] MEDS: ATORVASTATIN 20 MG TABLET PO SCH (09:05)
[2020-06-29] MEDS: GABAPENTIN 300 MG CAPSULE PO SCH ×2 (09:05→21:25)
[2020-06-29] MEDS: carvediloL 25 MG TABLET PO SCH ×2 (09:05→21:25)
[2020-06-29] MEDS: CYANOCOBALAMIN 500 MCG TABLET PO SCH (09:05)
[2020-06-29] MEDS: LACTULOSE 20 GM/30 ML UDCUP PO SCH ×2 (09:06→21:26)
[2020-06-29] MEDS ORDERED: traMADol 50 MG TABLET PO PRN (09:08)
[2020-06-29] MEDS ORDERED: MAGNESIUM HYDROXIDE SUSP 30 ML UDCUP PO PRN (09:08)
[2020-06-29] MEDS: PANTOPRAZOLE 40 MG VIAL IV SCH (09:08)
[2020-06-29] MEDS ORDERED: METOPROLOL TARTRATE 5 MG/5 ML VIAL IV ONE (09:52)
[2020-06-29] MEDS: LEVOFLOXACIN INJ 750 MG/150 ML PREMIX IV SCH (11:16)
[2020-06-30] MEDS: ALBUTEROL/IPRATROPIUM 3 ML NEB RESP TX SCH ×3 (03:08→11:32)
[2020-06-30 04:46] LABS: Basophils # 0.1 10*3/uL (0.0-0.2); Basophils % 0.3 % (0.0-0.8); Eosinophils # 0.2 10*3/uL (0.0-0.87); Eosinophils % 0.9 % (0.00-10.9); Hematocrit 31.4 VOL% (42.0-52.0); Hemoglobin 9.8 GM/DL (14.0-18.0); Immature Granulocytes % 1.6 %; Lymphocytes % 73.9 % (21.2-54.2); Mean Corpuscular HGB Conc 31.2 GM/DL (32-36); Mean Platelet Volume 10.1 FL (9.6-12.0); Monocytes % 4.8 % (1.7-12.7); Neutrophils % 18.5 % (38.7-73.9); Platelet Count 166 T/CUMM (130-400); Red Blood Count 3.34 MC/CUMM (3.8-5.5); Red Cell Distribution Width 15.2 % (9.3-17.3); White Blood Count 25.7 T/CUMM (4-12)
[2020-06-30 05:11] LABS: Atypical Lymphocytes Few; Eosinophils 4 % (0-10); Hypochromasia 1+; Lymphocytes 66 % (20-55); Microcytosis 1+; Platelet Estimate Adequate; Segmented Neutrophils 27 % (50-85); Total Cells Counted 100
[2020-06-30 05:12] LABS: Smudge Cells Few
[2020-06-30 05:17] LABS: Calcium 8.8 MG/DL (8.5-10.1); Osmolality,Calculated 281.5 MOS/KG (273-304); Potassium 4.5 MMOL/L (3.5-5.1)
[2020-06-30] MEDS ORDERED: PANTOPRAZOLE 40 MG TABLET PO SCH (09:00)
[2020-06-30] MEDS ORDERED: TERBINAFINE 250 MG TABLET PO SCH (09:00)
[2020-06-30] MEDS: ATORVASTATIN 20 MG TABLET PO SCH (10:00)
[2020-06-30] MEDS: GABAPENTIN 300 MG CAPSULE PO SCH (10:00)
[2020-06-30] MEDS: carvediloL 25 MG TABLET PO SCH (10:00)
[2020-06-30] MEDS: CYANOCOBALAMIN 500 MCG TABLET PO SCH (10:00)
[2020-06-30] MEDS: LACTULOSE 20 GM/30 ML UDCUP PO SCH (10:01)
[2020-06-30] MEDS: LEVOFLOXACIN INJ 750 MG/150 ML PREMIX IV SCH (11:22)
[2020-06-30 12:24] VITALS: BP 121/56
== END 2020-06-30 13:50 | disposition swing bed (61) | DRG 871 ==
LOC: EDUNIT# → EDBD → N.ED 08:35 → N.EDINP 10:42 → SUATTDRO 10:42 → N.4E 11:47
PROVIDERS: ADMIT Internal Medicine; ATTEND Family Medicine